=== PATIENT | male | born 1995 | race Caucasian/White ===

== ENCOUNTER → 2024-03-10 13:19 | Outpatient (REF) | payer OTHER, SELFPAY | LOC: PAVMRI 13:19 | PROVIDERS: ATTENDING PHYSICIAN Orthopaedic Surgery Sports Medicine; FAMILY PHYSICIAN Family Medicine | DX: M23.304 Other meniscus derangements, unspecified medial meniscus, left knee (principal) | CPT/HCPCS: 73721 ==